=== PATIENT | female | born 1955 | race Caucasian/White ===

== ENCOUNTER 2017-02-28 20:44 | Emergency (ER) | payer OTHER ==
[~2017-02-28] VITALS: Ht 152.4 cm; Wt 90.7 kg
[2017-02-28 20:44] VITALS: BP_SYST 124
[~2017-02-28 20:44] MED LIST: ASPI81TA2 PO; CLOP75TA2 PO; FURO20TA4 PO; GLU500 PO; KLORCON PO; LISI-600 PO; LISI40TA4 PO; POTA8TAB4 PO; PROP10TA10 PO; SIMV20TA2 PO
[2017-02-28] MEDS ORDERED: IBUPROFEN 800 MG TABLET PO ONE (21:00)
[2017-02-28] MEDS ORDERED: ONDANSETRON 4 MG ODT TAB PO ONE (22:30)
[2017-02-28] MEDS ORDERED: HYDROcodone/ACETAMIN 5-325 MG TAB (NORCO/ VICODIN) PO ONE (22:30)
[2017-02-28 22:50] VITALS: BP_SYST 120
== END 2017-02-28 22:50 | disposition home or self-care (01) ==
LOC: SED 20:44
DX: S82.232A Displaced oblique fracture of shaft of left tibia, initial encounter for closed fracture (principal); E11.9 Type 2 diabetes mellitus without complications; I10 Essential (primary) hypertension; E78.00 Pure hypercholesterolemia, unspecified; Z90.49 Acquired absence of other specified parts of digestive tract; Z90.89 Acquired absence of other organs; Z90.710 Acquired absence of both cervix and uterus; Z88.5 Allergy status to narcotic agent; Z79.899 Other long term (current) drug therapy; W11.XXXA Fall on and from ladder, initial encounter; Y93.89 Activity, other specified; Y92.89 Other specified places as the place of occurrence of the external cause; Y99.8 Other external cause status
CPT/HCPCS: 29515; 73610; 99284; Q0162

== ENCOUNTER 2017-03-03 10:13 | Outpatient (CLI) | payer OTHER ==
[~2017-03-03 10:13] MED LIST changes: -LISI40TA4 PO; -POTA8TAB4 PO
== END 2017-03-03 17:14 | disposition home or self-care (01) ==
LOC: SCT 10:13
PROVIDERS: ATTEND Orthopaedic Surgery
DX: S82.392A Other fracture of lower end of left tibia, initial encounter for closed fracture (principal); X58.XXXA Exposure to other specified factors, initial encounter; Y93.89 Activity, other specified; Y92.89 Other specified places as the place of occurrence of the external cause; Y99.8 Other external cause status
CPT/HCPCS: 73700-TC